=== PATIENT | female | born 2000 | race Two or more races ===

== ENCOUNTER 2023-04-12 17:51 | Observation (INO) | payer MEDICAID, OTHER ==
[~2023-04-12] VITALS: Ht 160 cm; Wt 65.8 kg
[2023-04-12] MEDS ORDERED: PREN-96 PO (19:00)
== END 2023-04-12 19:38 | disposition home or self-care (01) ==
LOC: LDRP 17:51
PROVIDERS: ADMIT Obstetrics & Gynecology; ATTEND Obstetrics & Gynecology
DX: O9A.213 Injury, poisoning and certain other consequences of external causes complicating pregnancy, third trimester (principal); S50.319A Abrasion of unspecified elbow, initial encounter; S80.212A Abrasion, left knee, initial encounter; S80.211A Abrasion, right knee, initial encounter; Z3A.30 30 weeks gestation of pregnancy; W19.XXXA Unspecified fall, initial encounter; Y93.89 Activity, other specified; Y92.89 Other specified places as the place of occurrence of the external cause; Y99.8 Other external cause status
CPT/HCPCS: 59025; 76815; 76817; 81002; 94760; G0378

== ENCOUNTER 2023-06-07 22:39 | Inpatient (IN) | payer MEDICAID ==
[~2023-06-07] VITALS: Ht 160 cm; Wt 70.8 kg
[~2023-06-07 22:39] MED LIST: PREN-96 PO
[2023-06-07] MEDS ORDERED: PROMETHAZINE HCL 25 MG/ML 1ML IV PRN (23:00)
[2023-06-07] MEDS ORDERED: DERMOPLAST 60ML BOTTLE TOP PRN (23:00)
[2023-06-07] MEDS ORDERED: PENICILLIN G POT 5MIL/D5 50ML 50 ML IV ONE (23:00)
[2023-06-07] MEDS ORDERED: LACT. RINGERS/OXYTOCIN 20UNITS 500 ML IV ONE ×2 (23:00→23:30)
[2023-06-07] MEDS ORDERED: LIDOCAINE 2%HCL (LOCAL ANESTH.) INJ 20ML MDV IJ PRN (23:00)
[2023-06-07] MEDS ORDERED: WITCH HAZEL-GLYCERIN PAD TOP PRN (23:00)
[2023-06-07] MEDS ORDERED: PHISODERM TOP SOLN 240ML BTL TOP PRN (23:00)
[2023-06-07 23:32] LABS: Basophils # (auto) 0.2 10 ^3/uL (0-0.2); Basophils % (auto) 1.1 % (0.0-2.0); Eosinophils # (auto) 0.1 10 ^3/uL (0-0.8); Eosinophils % (auto) 0.8 % (0.0-7.0); Hematocrit 35.3 % (36.0-46.0); Hemoglobin 11.7 g/dL (12.2-16.2); Lymphocytes # (auto) 4.4 10 ^3/uL (0.4-5.4); Lymphocytes % (auto) 32.1 % (10.0-50.0); Mean Corpuscular Hemoglobin 28.5 pg (28.0-32.0); Mean Corpuscular Hgb Conc. 33.1 g/dL (32.0-36.0); Mean Corpuscular Volume 86.2 fL (80.0-100.0); Monocytes # (auto) 1.3 10 ^3/uL (0-1.3); Monocytes % (auto) 9.3 % (0.0-12.0); Neutrophils # (auto) 7.8 10 ^3/uL (1.6-8.6); Neutrophils % (auto) 56.7 % (37.0-80.0); Nucleated Red Blood Cells % 0.1 %; Red Cell Distribution Width 13.8 % (11.8-14.3); White Blood Cell 13.7 10^3/uL (4.4-10.8)
[2023-06-07 23:47] LABS: Alanine Aminotransferase 13 U/L (7-40); Albumin 3.8 g/dL (3.2-4.8); Alkaline Phosphatase 312 U/L (46-116); Anion Gap 8 (5-15); Aspartate Aminotransferase 14 U/L (13-40); Blood Urea Nitrogen 14 mg/dL (9-23); Calcium 9.2 mg/dL (8.7-10.4); Carbon Dioxide 22 mmol/L (20-30); Chloride 108 mmol/L (98-107); Glucose 98 mg/dL (74-106); INR 0.89 (0.9-1.15); Partial Thromboplastin Time 26.5 SEC (24.5-34.5); Potassium 4.1 mmol/L (3.5-5.1); Prothrombin Time 9.4 sec (9.3-11.8); Sodium 138 mmol/L (136-145)
[2023-06-07 23:48] LABS: Bilirubin, Total 0.2 mg/dL (0.2-1.0); Total Protein 6.5 g/dL (5.7-8.2)
[2023-06-08] MEDS: LACTATED RINGER'S 1,000 ML IV SCH ×3 (00:05→15:00)
[2023-06-08] MEDS ORDERED: LACT. RINGERS/OXYTOCIN 20UNITS 1,000 ML IV SCH (00:30)
[2023-06-08] MEDS ORDERED: fentaNYL CITRATE 100 MCG/2 ML VL IV ONE (00:45)
[2023-06-08] MEDS ORDERED: ROPIVACAINE HCL 200 ML EPI SCH ×2 (00:45→01:45)
[2023-06-08] MEDS ORDERED: ePHEDrine SULFATE 50 MG/ML AMP IV ONE (00:45)
[2023-06-08] MEDS ORDERED: NALOXONE HCL 0.4 MG/ML VIAL IV ONE (00:45)
[2023-06-08] MEDS ORDERED: LIDOCAINE HCL 2 %PF INJ 10ML AMP IJ ONE (00:45)
[2023-06-08 01:28] LABS: Amphetamine Screen, Urine Neg (NEGATIVE); Benzodiazephine Screen, Urine Neg (NEGATIVE)
[2023-06-08 01:29] LABS: Barbiturate Scree,Urine Neg (NEGATIVE); Cannabinoid Screen, Urine Neg (NEGATIVE); Cocaine Screen, Urine Neg (NEGATIVE); Opiate Scree,Urine Neg (NEGATIVE); Phencyclidine Screen, Urine Neg (NEGATIVE)
[2023-06-08] MEDS ORDERED: PENICILLIN G POTASSIUM 2,500,000 UNITS in D5W 5% 50 ML IV SCH (03:00)
[2023-06-08] MEDS ORDERED: TRANEXAMIC ACID 1,000 MG in SODIUM CHL 0.9% 100 ML IV ONE (06:15)
[2023-06-08] MEDS ORDERED: miSOPROStol 100 mcg TAB SL PRN (06:15)
[2023-06-08] MEDS ORDERED: METHYLERGONOVINE MALEATE 0.2 MG/ML AMP IM PRN (06:15)
[2023-06-08] MEDS ORDERED: ONDANSETRON HCL 4 MG/2 ML VIAL IV PRN (06:15)
[2023-06-08] MEDS ORDERED: CARBOPROST TROMETHAMINE 250 MCG/1ML VIAL IM PRN (06:15)
[2023-06-08] MEDS ORDERED: miSOPROStol 100 mcg TAB PR PRN (06:15)
[2023-06-08] MEDS ORDERED: ONDANSETRON ODT 4 MG TAB PO PRN (07:00)
[2023-06-08] MEDS ORDERED: ACETAMINOPHEN 325 MG TAB PO PRN (07:00)
[2023-06-08] MEDS ORDERED: DIPHENOXYLATE W/ATROPINE 2.5 MG TAB PO SCH (10:00)
[2023-06-08 11:06] VITALS: BP 142/75; PULSE 70; RESP 18; TEMP 97.5; O2SAT 98
[2023-06-08] MEDS: IBUPROFEN 600 MG TAB PO PRN ×2 (13:00→20:53)
[2023-06-08 14:39] VITALS: BP 133/87; PULSE 68; RESP 18; TEMP 98; O2SAT 98
[2023-06-08 19:00] VITALS: BP 129/74; PULSE 80; RESP 16; TEMP 98; O2SAT 99
[2023-06-08] MEDS ORDERED: DOCUSATE SOD 100 MG CAP PO SCH (22:00)
[2023-06-08 23:14] VITALS: BP 127/72; PULSE 88; RESP 18; TEMP 98.8; O2SAT 97
[2023-06-09 02:48] VITALS: BP 129/72; PULSE 78; RESP 17; TEMP 98.2; O2SAT 97
[2023-06-09] MEDS: IBUPROFEN 600 MG TAB PO PRN (03:14)
[2023-06-09 06:06] LABS: RPR Non Reactive (Non Reactive)
[2023-06-09 06:55] VITALS: BP 132/80; PULSE 68; RESP 16; TEMP 98.1
[2023-06-09 10:38] VITALS: BP 136/80; PULSE 67; RESP 16; TEMP 98.4
[2023-06-10 21:06] LABS: Treponema pallidum Ab (FTA-Ab) Non Reactive (Non Reactive)
== END 2023-06-09 14:28 | disposition home or self-care (01) | DRG 560 ==
LOC: LDRP 22:39 → OBSVTOIN 23:00
PROVIDERS: ADMIT Obstetrics & Gynecology; ATTEND Obstetrics & Gynecology
PROC: 10E0XZZ Delivery of Products of Conception, External Approach (ICD-10-PCS; principal; 2023-06-07)
PROC: 0KQM0ZZ Repair Perineum Muscle, Open Approach (ICD-10-PCS; 2023-06-07)
PROC: 3E0R3BZ Introduction of Anesthetic Agent into Spinal Canal, Percutaneous Approach (ICD-10-PCS; 2023-06-07)
PROC: 00HU33Z Insertion of Infusion Device into Spinal Canal, Percutaneous Approach (ICD-10-PCS; 2023-06-07)
DX: O48.0 Post-term pregnancy (principal); Z37.0 Single live birth; O70.1 Second degree perineal laceration during delivery; Z3A.40 40 weeks gestation of pregnancy
CPT/HCPCS: 36415; 59025; 59409; 62282; 80053; 80307; 81002; 85025; 85610; 85730; 86592; 86850; 86900; 86901; 94760; 94762; 96360; 96361; G0378; J2590